=== PATIENT | male | born 1970 | race Two or more races ===

== ENCOUNTER 2017-11-25 11:47 | Day surgery (SDC) | payer OTHER ==
[2017-11-25] MEDS ORDERED: LIDOCAINE 100 MG SYRINGE (13:14)
[2017-11-25] MEDS ORDERED: FENTAnyl 50 MCG/ML VIAL (13:14)
[2017-11-25] MEDS ORDERED: PROPOFOL 40 ML (13:14)
== END 2017-11-25 15:53 | disposition home or self-care (01) ==
LOC: GIL 11:47
DX: Z12.11 Encounter for screening for malignant neoplasm of colon (principal); K64.8 Other hemorrhoids; D12.4 Benign neoplasm of descending colon; K29.70 Gastritis, unspecified, without bleeding; I10 Essential (primary) hypertension
CPT/HCPCS: 43239; 88305